=== PATIENT | male | born 1970 | race Caucasian/White ===

== ENCOUNTER 2016-08-24 10:53 | Day surgery (SDC) | payer BC ==
[~2016-08-24] VITALS: Ht 180.3 cm; Wt 126.1 kg
[~2016-08-24 10:53] MED LIST: CEFAZOLIN 1 GM IVPB PREMIX 50 ML IV ONE
[2016-08-24 13:44] VITALS: O2SAT 100
[2016-08-24] MEDS ORDERED: MIDAZOLAM HCL 5 MG/5 ML VIAL ONE (14:00)
[2016-08-24] MEDS ORDERED: LR 1,000 ML IV.SOLN IV ONE (14:00)
[2016-08-24] MEDS ORDERED: ROCURONIUM BROMIDE 10 MG/ML (ZEMURON) ONE (14:00)
[2016-08-24] MEDS ORDERED: GLYCOPYRROLATE 0.2 MG/ML VIAL ONE (14:00)
[2016-08-24] MEDS ORDERED: NS IRRIG SOLN 1000 ML IR ONE (14:00)
[2016-08-24] MEDS ORDERED: SEVOFLURANE 15 MIN GAS INH ONE (14:00)
[2016-08-24] MEDS ORDERED: PROPOFOL 200MG/ 20ML VIAL (DIPRIVAN) IV ONE (14:00)
[2016-08-24] MEDS ORDERED: BUPIVACAINE /PF 0.25% 30 ML VIAL INJ ONE (14:00)
[2016-08-24] MEDS ORDERED: fentaNYL CITRATE 250 MCG/5 ML AMP ONE (14:00)
[2016-08-24] MEDS ORDERED: ONDANSETRON HCL 4 MG/2 ML VIAL ONE (14:00)
[2016-08-24] MEDS ORDERED: NEOSTIGMINE METHYLSULFATE 1 MG/ML, 10 ML VIAL ONE (14:00)
[2016-08-24] MEDS ORDERED: POLYMYXIN 500,000/BACIT.10,000 UNITS in NS IRR 1 L IR ONE (15:29)
[2016-08-24] MEDS ORDERED: LR 1,000 ML IV SCH (16:35)
[2016-08-24] MEDS ORDERED: METOCLOPRAMIDE HCL 10 MG/2 ML VIAL IVP PRN (16:45)
[2016-08-24] MEDS ORDERED: MORPHINE 4 MG/ML INJ. SYRINGE IVP PRN ×3 (16:45)
[2016-08-24] MEDS ORDERED: HYDROcodone/ACETAMIN 5-325 MG TAB (NORCO/ VICODIN) PO PRN ×2 (17:00)
[2016-08-24] MEDS ORDERED: HYDROmorphone 1 MG INJ. 1 MG/ML AMPUL IVP PRN (17:00)
[2016-08-24] MEDS ORDERED: MORPHINE 4 MG/ML INJ. SYRINGE ONE (17:37)
[2016-08-24] MEDS ORDERED: D5/0.45 NS 1,000 ML IV SCH (17:45)
[2016-08-24 17:48] VITALS: BP 102/69; PULSE 66; RESP 16
== END 2016-08-24 18:30 | disposition home or self-care (01) ==
LOC: SDS 10:53
PROVIDERS: ATTEND Colon & Rectal Surgery
DX: K43.0 Incisional hernia with obstruction, without gangrene (principal); E11.9 Type 2 diabetes mellitus without complications; I10 Essential (primary) hypertension; I21.3 ST elevation (STEMI) myocardial infarction of unspecified site; E66.01 Morbid (severe) obesity due to excess calories
CPT/HCPCS: 49561; 49568; 88302; C1781; J0690; J2250; J2270; J2405; J2704; J2710; J3010; J3490 ×2; J7120